=== PATIENT | male | born 1985 ===

== ENCOUNTER 2018-02-22 21:08 | Emergency (ER) | payer MEDICAID ==
[2018-02-22 22:23] VITALS: BP 114/71; PULSE 81; RESP 18; TEMP 97.3; O2SAT 100
[2018-02-22] MEDS ORDERED: Clindamycin 600mg/50ml D5W 600 MG/50 ML VIAL IVPB STA (22:38)
[2018-02-22] MEDS ORDERED: Sodium Chloride 0.9% 1,000 ML IV SCH (22:45)
--- NOTE | 2018-02-22 23:30 | ED PDOC ---
HPI: General Adult Time Seen by Provider: 02/22/18 23:27 Chief Complaint (Nursing): Abnormal Skin Integrity Chief Complaint (Provider): rash History Per: Patient History/Exam Limitations: no limitations Onset/Duration Of Symptoms: Days Current Symptoms Are (Timing): Still Present Additional Complaint(s): Pt. is a 33 y/o Male with multiple complaints. Pt. reports he has had a rash to his right face x 1 week, it was initially painful, then itchy, now resolving with some scabbing to area. Pt. also reports right sided rib pain associated with no injury, no cough, no dyspnea, no pleuritic component. Pt. also reports falling asleep outside today, getting sunburned and now feeling dehydrated; also went to tanning bed the other day and thinks that also dehydrated him. Of note pt. is HIV +, has not taken his meds in 2 mos, has not seen his ID doctor or had blood work in 2 mos. as well. In addition pt. reports he had been using methamphetamines regularly and stopped about 10 days ago. Pt. denies fevers. Past Medical History Vital Signs: Last Vital Signs Temp 97.3 F L 02/22/18 22:16 Pulse 81 02/22/18 22:16 Resp 18 02/22/18 22:16 BP 114/71 02/22/18 22:16 Pulse Ox 100 02/23/18 00:22 - Medical History PMH: HIV Denies: Chronic Kidney Disease - Surgical History Surgical History: No Surg Hx - Family History Family History: States: No Known Family Hx - Home Medications Home Medications: Ambulatory Orders Medication Instructions Recorded Clindamycin [Cleocin] 300 mg PO TID 7 Days #21 cap 02/23/18 - Allergies Allergies/Adverse Reactions: Allergies Allergy/AdvReac Type Severity Reaction Status Date / Time No Known Allergies Allergy Verified 02/22/18 22:19 Review of Systems Respiratory: Positive for: Other (rib pain) Skin: Positive for: Rash Physical Exam - Reviewed Nursing Documentation Reviewed: Yes Vital Signs Reviewed: Yes - Physical Exam Appears: Positive for: Well, Non-toxic Head Exam: Positive for: ATRAUMATIC Skin: Positive for: Normal Color, Rash (scabbed 2 cm. area to right preauricular area, with no fluctuance or induration. ) Eye Exam: Positive for: Normal appearance ENT: Positive for: Normal ENT Inspection, TM Is/Are (clear, no erythema, no vesicles. No swelling or tenderness of external ear canal) Neck: Positive for: Normal Cardiovascular/Chest: Positive for: Regular Rate, Rhythm Respiratory: Positive for: Normal Breath Sounds, Other (minimal tenderness over right mid ribs in mid axillary line, (-) rash) Gastrointestinal/Abdominal: Positive for: Normal Exam Back: Positive for: Normal Inspection Extremity: Positive for: Normal ROM Lymphatic: Positive for: Normal Exam Neurologic/Psych: Positive for: Alert - Laboratory Results Result Diagrams: 02/22/18 22:47 02/22/18 22:47 - ECG O2 Sat by Pulse Oximetry: 100 Medical Decision Making Medical Decision Making: IV access established, IVF and IV clinda given. On reassessment, pt. reports feeling better after fluids, remains afebrile and nontoxic appearing. Pt. tolerating po. Stressed importance of close f/u with ID, agrees to contact doctor at [facility] tomorrow to arrange f/u. Disposition - Clinical Impression Clinical Impression: Facial rash - Patient ED Disposition Is Patient to be Admitted: No Comment: Must follow up with ID Doctor at [facility] Doctor Will See Patient In The: Office - Disposition Disposition: Routine/Home Disposition Time: 00:14 Condition: IMPROVED Additional Instructions: Rest, hydrate and follow up with ID at [facility] tomorrow Prescriptions: Clindamycin [Cleocin] 300 mg PO TID 7 Days #21 cap Instructions: Skin Rash (DC) Forms: [employer] (Nepali)
[2018-02-22 23:56] LABS: BASO % 0.3 % (0.0-2.0); EOS # 0.1 K/uL (0.0-0.7); HEMOGLOBIN 12.9 g/dL (12.0-18.0); LYMPH # 1.5 K/uL (1.0-4.3); LYMPH % 24.2 % (20.0-40.0); MEAN CELL VOLUME 88.5 fl (80.0-94.0); MEAN CORPUSCULAR HEMOGLOBIN 28.5 pg (27.0-31.0); MEAN CORPUSCULAR HGB CONC 32.2 g/dL (33.0-37.0); MEAN PLATELET VOLUME 8.4 fl (7.2-11.7); MONO # 1.3 K/uL (0.0-0.8); NEUT # 3.3 K/uL (1.8-7.0); NEUT % 53.5 % (50.0-75.0); PLATELET COUNT 215 K/uL (130-400); RBC 4.51 Mil/uL (4.40-5.90); RED CELL DISTRIBUTION WIDTH 12.7 % (11.5-14.5); WHITE BLOOD COUNT 6.1 K/uL (4.8-10.8)
[2018-02-23 00:08] LABS: ALB/GLOB RATIO 0.8 (1.0-2.1); ALBUMIN 3.5 g/dL (3.5-5.0); ALT/SGPT 27 U/L (21-72); AST/SGOT 55 U/L (17-59); BLOOD UREA NITROGEN 15 mg/dl (9-20); CALCIUM 8.6 mg/dL (8.4-10.2); GFR NON-AFRICAN AMERICAN > 60
[2018-02-23 01:08] LABS: BANDS 3 % (0-2); LYMPHOCYTE 21 % (20-50); MONOCYTE 21 % (0-10); NEUTROPHIL 54 % (42-75); REACTIVE LYMPHOCYTES 1 % (0-0); TOTAL CELLS COUNTED 100
[2018-02-23 01:09] LABS: LARGE PLATELETS PRESENT; PLATELET ESTIMATE NORMAL (NORMAL)
--- NOTE | 2018-02-23 10:49 | RAD ---
Date of service: 02/22/2018 HISTORY: Right rib pain COMPARISON: No prior. TECHNIQUE: Chest PA and lateral FINDINGS: LUNGS: No active pulmonary disease. PLEURA: No significant pleural effusion identified. No pneumothorax apparent. CARDIOVASCULAR: Normal. OSSEOUS STRUCTURES: No significant abnormalities. VISUALIZED UPPER ABDOMEN: Normal. OTHER FINDINGS: None. IMPRESSION: No active disease.
== END 2018-02-23 00:39 | disposition home or self-care (01) ==
LOC: H.ER 21:08
DX: R21 Rash and other nonspecific skin eruption (principal)
CPT/HCPCS: 71046; 80053; 85025; 99283; J7030